=== PATIENT | female | born 2000 | race Two or more races ===

== ENCOUNTER 2022-05-15 21:21 | Emergency (ER) | payer OTHER ==
[~2022-05-15] VITALS: Ht 162.6 cm; Wt 84.4 kg
[2022-05-15] MEDS ORDERED: TYLENOL (22:28)
[2022-05-16] MEDS ORDERED: ACETAMINOPHEN650 M2 PO (02:43)
[2022-05-16] MEDS ORDERED: MUCINEX D ER 61 EACH PO (02:43)
[2022-05-16] MEDS ORDERED: XOPENEX0.63 MG/3 IH (02:43)
[2022-05-16] MEDS ORDERED: MOLNUPIRAVIR (200 MG PO (02:43)
== END 2022-05-16 03:07 | disposition home or self-care (01) ==
LOC: ER 21:21
DX: U07.1 COVID-19 (principal); D69.6 Thrombocytopenia, unspecified

== ENCOUNTER 2023-05-28 13:04 | Emergency (ER) | payer OTHER ==
[~2023-05-28] VITALS: Ht 162.6 cm; Wt 81.6 kg
[~2023-05-28 13:04] MED LIST: ACETAMINOPHEN650 M2 PO; MOLNUPIRAVIR (200 MG PO; MUCINEX D ER 61 EACH PO; TYLENOL; XOPENEX0.63 MG/3 IH
== END 2023-05-28 16:01 | disposition home or self-care (01) ==
LOC: ER 13:04
DX: M94.0 Chondrocostal junction syndrome [Tietze] (principal)

== ENCOUNTER 2023-07-06 20:10 | Emergency (ER) | payer OTHER ==
[~2023-07-06] VITALS: Ht 162.6 cm; Wt 85.3 kg
== END 2023-07-06 21:52 | disposition home or self-care (01) ==
LOC: ER 20:10
DX: M25.571 Pain in right ankle and joints of right foot (principal)
CPT/HCPCS: 73600; 96372; 99284; J1885

== ENCOUNTER → 2025-01-13 | Emergency (ER) | payer OTHER ==
[~2025-01-13] VITALS: Ht 162.6 cm; Wt 90.7 kg
== END | disposition home or self-care (01) ==
LOC: ER 10:08
DX: Z53.21 Procedure and treatment not carried out due to patient leaving prior to being seen by health care provider (principal)